=== PATIENT | female | born 2000 | race Caucasian/White ===

== ENCOUNTER 2020-05-08 01:31 | Emergency (ER) | payer OTHER, MEDICAID ==
[~2020-05-08] VITALS: Ht 162.6 cm; Wt 66.7 kg
[2020-05-08 01:38] VITALS: Ht 162.6 cm; Wt 66.7 kg
[2020-05-08 02:52] VITALS: BP 117/75
== END 2020-05-08 02:52 | disposition home or self-care (01) ==
LOC: ED 01:31
DX: M25.512 Pain in left shoulder (principal)
CPT/HCPCS: Q0092